=== PATIENT | male | born 1975 | race Caucasian/White ===

== ENCOUNTER 2018-10-13 09:20 | Emergency (ER) | payer SELFPAY ==
[2018-10-13] MEDS: DIPHTH/TET/ACEL PERTUSS (ADULT) 0.5 ML VIAL IM* (09:54)
[2018-10-13] MEDS: LIDOCAINE 1% (MPF) 5 ML VIAL INJ (10:12)
== END 2018-10-13 11:20 | disposition home or self-care (01) ==
LOC: FTE 11:20
DX: S61.210A Laceration without foreign body of right index finger without damage to nail, initial encounter (principal); W26.0XXA Contact with knife, initial encounter; Y92.89 Other specified places as the place of occurrence of the external cause; Z23 Encounter for immunization
CPT/HCPCS: 12001; 90471; 90715; 99283-25